=== PATIENT | female | born 1940 | race Caucasian/White ===

== ENCOUNTER 2016-12-19 21:52 | Outpatient (CLI) | payer MEDICARE, OTHER | END 2016-12-19 21:53 | disposition critical access hospital (66) | LOC: EMS 21:52 | PROVIDERS: ATTEND Surgery | DX: L29.9 Pruritus, unspecified (principal); R60.9 Edema, unspecified; W57.XXXA Bitten or stung by nonvenomous insect and other nonvenomous arthropods, initial encounter | CPT/HCPCS: A0425; A0429 ==

== ENCOUNTER 2016-12-19 22:18 | Emergency (ER) | payer MEDICARE, OTHER ==
[2016-12-19] MEDS ORDERED: methylPREDNISolone SUCCINATE 125 MG/2 ML VIAL IVP STA (22:44)
[2016-12-19] MEDS ORDERED: methylPREDNISolone SUCCINATE 125 MG/2 ML VIAL ONE (22:49)
[2016-12-19] MEDS ORDERED: FAMOTIDINE 20 MG/2 ML VIAL ONE (22:50)
[2016-12-19] MEDS ORDERED: FAMOTIDINE 20 MG in SODIUM CHLORIDE 0.9% 50 ML IV SCH (23:00)
--- NOTE | 2016-12-20 00:29 | ED Physician Documentation ---
History of Present Illness - Stated complaint Stated Complaint: Allergic RX - Chief complaint Chief Complaint: Allergic Rx - History obtained from History obtained from: Patient - History of Present Illness Timing: Enter time (20:30) - Additonal information Additional information: stung by stinging insect approximately 8:30 PM today, subsequently developed generalized pruritic rash, tongue and lip swelling. 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 denies dyspnea, chest pain or tightness. patient was stung in her left foot Review of Systems Cardiac: reports: Reviewed and negative Respiratory: reports: Reviewed and negative Skin: reports: Rash PD PAST MEDICAL HISTORY - Past Medical History Past Medical History: Yes Cardiovascular: Hypertension Respiratory: None Neuro: None Endocrine/Autoimmune: None GI: GERD TITLE EXAMINER: None : None HEENT: None Psych: None Musculoskeletal: None Derm: None - Past Surgical History Past Surgical History: Yes Ortho: Knee replacement - Present Medications Home Medications: Ambulatory Orders Medication Instructions Recorded Confirmed Lisinopril 1 tab PO DAILY 12/19/16 12/19/16 Omeprazole 1 tab PO DAILY 12/19/16 12/19/16 Epinephrine [Epipen 2-Tom] 0.3 mg IJ ONCE PRN #1 auto.injct 12/20/16 Prednisone 40 mg PO DAILY 3 Days 12/20/16 - Allergies Allergies/Adverse Reactions: Allergies Allergy/AdvReac Type Severity Reaction Status Date / Time No Known Drug Allergies Allergy Verified 12/19/16 22:27 - Social History Does the pt smoke?: No Smoking Status: Never smoker Does the pt drink ETOH?: No Does the pt have substance abuse?: No - Immunizations Immunizations are current?: Yes PD ED PE NORMAL - Vitals Vital signs reviewed: Yes - General General: Alert and oriented X 3, No acute distress, Well developed/nourished - HEENT HEENT: Pharynx benign, Other (no obvious edema/swelling, airway is widely patent , normal voice) - Cardiac Cardiac: RRR, No murmur - Respiratory Respiratory: No respiratory distress, Clear bilaterally - Derm Derm: Normal color, Warm and dry PD ED PE EXPANDED - Derm Derm: Urticaria (faint urticaria BUE) - Extremities Extremities: Other (no visualized stinger on inspection of left foot (patient indicates dorsal surface site);) Results - Vitals Vitals: Oxygen O2 Source Room air PD MEDICAL DECISION MAKING - ED course Complexity details: considered differential, d/w patient Departure - Departure Disposition: 01 Home, Self Care Clinical Impression: Allergic reaction Qualifiers: Encounter type: initial encounter Qualified Code(s): T78.40XA - Allergy, unspecified, initial encounter Condition: Good Instructions: ED Bite Sting Insect Gen Allergic React Prescriptions: Epinephrine [Epipen 2-Tom] 0.3 mg IJ ONCE PRN #1 auto.injct PRN Reason: Anaphylaxis Prednisone 40 mg PO DAILY 3 Days Discharge Date/Time: 12/20/16 01:15
[2016-12-20 01:27] VITALS: BP 142/77
== END 2016-12-20 01:15 | disposition home or self-care (01) ==
LOC: EDUNIT# → ED 22:18
DX: T78.40XA Allergy, unspecified, initial encounter (principal); W57.XXXA Bitten or stung by nonvenomous insect and other nonvenomous arthropods, initial encounter; I10 Essential (primary) hypertension; K21.9 Gastro-esophageal reflux disease without esophagitis
CPT/HCPCS: 96374; 96375; 99283; J7040